=== PATIENT | male | born 1970 | race African-American/Black ===

== ENCOUNTER 2020-05-21 07:09 | Day surgery (SDC) | payer BC ==
[2020-05-20 11:11] VITALS: BMI 36.7
[2020-05-21] MEDS ORDERED: Lidocaine 1% w/Epinephrine 1:100K 20 ML VIAL ONE ×2 (08:36→08:59)
[2020-05-21 08:37] LABS: #Eosinphils 0.2 thou/uL (0.0-0.7); #Lymphocytes 1.5 thou/uL (1.20-3.40); #Monocytes 0.4 thou/uL (0.11-0.59); #Neutrophils 5.7 thou/uL (1.40-6.50); %Basophils 0.3 % (0.0-1.0); %Eosinophils 2.1 % (0.0-10.0); %Lymphocytes 19.2 % (21.0-51.0); %Monocytes 4.6 % (0.0-10.0); %Neutrophils 73.7 % (42.0-75.0); Hemoglobin 13.9 g/dL (14.0-18.0); Mean Corpuscular HGB CONC 34.3 g/dL (32.0-36.0); Mean Corpuscular Hemoglobin 35.5 pg (27.0-31.0); Mean Platelet Volume 9.2 fL (7.4-10.4); Platelet Count 153 thou/uL (130-400); RBC Distribution Width 10.9 % (11.5-14.5); Red Blood Cell (RBC) Count 3.91 mill/uL (4.70-6.10); White Blood Cell (WBC) Count 7.7 thou/uL (4.8-10.8)
[2020-05-21 08:43] LABS: INR-International Normal Ratio 1.1; PTT 29.6 sec (22.9-36.1)
[2020-05-21] MEDS ORDERED: Midazolam HCl 2 mg/2 ml Vial ONE (08:51)
[2020-05-21] MEDS ORDERED: Fentanyl 100 MCG/2 ML VIAL ONE (08:51)
[2020-05-21 08:53] LABS: Anion Gap 16 mmol/L (10-20); BUN (Urea Nitrogen) 8 mg/dL (8.9-20.6); Calc. Creatinine Clearance 191 mL/min (70-130); Calcium 8.6 mg/dL (7.8-10.44); Carbon Dioxide 25 mmol/L (22-29); Chloride 100 mmol/L (98-107); Estimated GFR-MDRD Greater than 90; Glucose 182 mg/dL (70-105); Sodium 138 mmol/L (136-145)
[2020-05-21] MEDS ORDERED: CEFAZOLIN 1 GM VIAL ONE (09:18)
--- NOTE | 2020-05-21 10:29 | OP ---
DATE OF PROCEDURE: 05/21/2020 PROCEDURE PERFORMED: Loop recorder explant and new loop recorder implant. REASON FOR PROCEDURE: Mr. Jade is a 50-year-old male with prior history of nonsustained wide-complex tachycardia with reduced LVEF in 2017. He was noninducible for ventricular tachycardia at that time. A loop recorder was placed, EF normalized. He has paroxysmal SVT versus atrial tachycardia episodes. Loop recorder is at battery depletion. Hence, we planned to continue monitoring the rhythm. Plan is to replace the loop recorder. DESCRIPTION OF PROCEDURE: The patient received no sedation. Local lidocaine with epi was used for hemostasis and analgesia. The incision was made over the previous loop recorder implant site and loop recorder was extracted with a hemostat. Following that, Ancef antibiotic irrigation of the pocket was performed. A new [employer] LINQ implantable recorder was implanted using the standard tool kit. The wound was closed with 3-0 Vicryl suture and Dermabond. The patient tolerated the procedure well. No complications noted. PLAN: Continue monitoring for recurrent atrioventricular arrhythmias. Job ID: [id number]
== END 2020-05-21 10:17 | disposition home or self-care (01) ==
LOC: CCL 07:09
PROVIDERS: ATTEND Internal Medicine Cardiovascular Disease
PROC: 4A1234Z Monitoring of Cardiac Electrical Activity, Percutaneous Approach (ICD-10-PCS; principal; 2020-05-21)
PROC: 0JH632Z Insertion of Monitoring Device into Chest Subcutaneous Tissue and Fascia, Percutaneous Approach (ICD-10-PCS; principal; 2020-05-21)
DX: I47.1 Supraventricular tachycardia (principal); I10 Essential (primary) hypertension; M10.9 Gout, unspecified; Z79.82 Long term (current) use of aspirin; Z79.84 Long term (current) use of oral hypoglycemic drugs; Z79.899 Other long term (current) drug therapy; Z88.8 Allergy status to other drugs, medicaments and biological substances
CPT/HCPCS: 33285; 33286; 36415; 80048; 85025; 85610; 85730; 93005; 93010; C1764; J0690; J1644; J2250; J3010